=== PATIENT | female | born 1960 | race Caucasian/White ===

== ENCOUNTER 2019-09-29 13:30 | Emergency (ER) | payer MEDICAID ==
[~2019-09-29] VITALS: Ht 160 cm; Wt 50.0 kg
[2019-09-29 13:37] VITALS: Ht 160 cm; Wt 50.0 kg
[2019-09-29 14:54] VITALS: BP 136/72
== END 2019-09-29 14:55 | disposition home or self-care (01) ==
LOC: D.ER 13:30
DX: S42.251A Displaced fracture of greater tuberosity of right humerus, initial encounter for closed fracture (principal); W19.XXXA Unspecified fall, initial encounter; Y93.9 Activity, unspecified; Y92.9 Unspecified place or not applicable; E03.9 Hypothyroidism, unspecified

== ENCOUNTER → 2019-11-29 09:01 | Outpatient (CLI) | payer MEDICAID ==
[2019-09-29 13:37] VITALS: BMI 19.5
== END | disposition home or self-care (01) ==
LOC: D.CT 09:00
PROVIDERS: ATTEND Clinical Nurse Specialist Family Health
DX: S42.201A Unspecified fracture of upper end of right humerus, initial encounter for closed fracture (principal)

== ENCOUNTER → 2019-12-06 18:55 | Outpatient (CLI) | payer MEDICAID ==
[2019-09-29 13:37] VITALS: BMI 19.5
[2019-12-06 19:44] LABS: BASOPHILS 0.8 % (0-2); EOSINOPHILS 8.6 % (0-7); HEMOGLOBIN 13.6 g/dL (12-16); IMMATURE GRANULOCYTES 0.1 % (0-5); LYMPHOCYTES 35.2 % (15-50); MCH 34.8 pg (26.0-34.0); MCHC 33.2 g/dL (31.0-37.0); MCV 104.9 fL (80.0-100.0); MONOCYTES 6.9 % (2-11); NEUTROPHILS 48.4 % (40-80); RBC 3.91 10x6/uL (4.00-5.40); RDW 14.2 % (11.5-14.5); WBC 7.4 10x3/uL (4.8-10.8)
[2019-12-06 19:46] LABS: C-REACTIVE PROTEIN 0.8 mg/dL (0.0-0.9); CALC OSMOLALITY 278 mosm/kg (275-300); CALCIUM 9.3 mg/dL (8.5-10.1); CARBON DIOXIDE 27.9 mmol/L (21.0-32.0); CHLORIDE - SERUM 102 mmol/L (98-107); CREATININE - SERUM 0.8 mg/dL (0.6-1.3); POTASSIUM - SERUM 4.6 mmol/L (3.5-5.1); SODIUM 140 mmol/L (136-145); UREA NITROGEN 19 mg/dL (7-18); eGFR NON AFRICAN AMERICAN 78 mL/min (90-120)
[2019-12-06 19:53] LABS: GLUCOSE 62 mg/dL (74-106)
[2019-12-06 20:04] LABS: PLATELET COUNT 357 10x3/uL (130-400)
[2019-12-06 21:23] LABS: ERYTHROCYTE SEDIMENTATION RATE 17 mm/hr (0-30)
== END | disposition home or self-care (01) ==
LOC: D.LABREF 18:55
PROVIDERS: ATTEND Clinical Nurse Specialist Family Health
DX: M25.511 Pain in right shoulder (principal)

== ENCOUNTER → 2019-12-13 09:47 | Outpatient (CLI) | payer MEDICAID ==
[2019-09-29 13:37] VITALS: BMI 19.5
== END | disposition home or self-care (01) ==
LOC: D.CT 09:47
PROVIDERS: ATTEND Orthopaedic Surgery
DX: S42.201K Unspecified fracture of upper end of right humerus, subsequent encounter for fracture with nonunion (principal)